=== PATIENT | female | born 1970 | race Native Hawaiian/Other Pacific Islander ===

== ENCOUNTER 2022-02-01 21:23 | Emergency (ER) | payer OTHER ==
[~2022-02-01] VITALS: Ht 175.3 cm; Wt 114.8 kg
[2022-02-01 23:30] LABS: PLATELET COUNT 369 K/uL (152-353)
[2022-02-01 23:51] LABS: POTASSIUM 3.8 mmol/L (3.6-5.2)
[2022-02-05 07:25] VITALS: BP 138/89; TEMP 97.1
== END 2022-02-07 18:18 | disposition home or self-care (01) ==
LOC: ED 21:23
PROVIDERS: Emergency Medicine Emergency Medical Services
DX: F32.9 Major depressive disorder, single episode, unspecified (principal); R45.851 Suicidal ideations; Z20.822 Contact with and (suspected) exposure to COVID-19; Z98.890 Other specified postprocedural states
CPT/HCPCS: 36415; 80053; 80307; 80320; 80329; 81000; 85027; 87635; 93005; 96372; 99285; J1170; J1200; J1885; J2270; J2405; J3486; U0003